=== PATIENT | female | born 1970 | race Caucasian/White ===

== ENCOUNTER 2019-06-28 17:56 | Inpatient (IN) | payer OTHER, MEDICAID ==
[2019-06-28 18:43] LABS: ABNORMAL IP MESSAGE 1; HEMATOCRIT 25.9 % (37.0-47.0); HEMOGLOBIN 7.5 g/dl (12.0-16.0); MEAN CORPUSCULAR HEMOGLOBIN 19.7 pg (29.0-33.0); MEAN PLATELET VOLUME 8.5 fl (7.4-10.4); RED BLOOD COUNT 3.81 10^6/ul (4.20-5.40); RED CELL DISTRIBUTION WIDTH 21.7 % (11.5-14.5)
[2019-06-28 18:43] LABS: WHITE BLOOD COUNT 10.7 10^3/ul (4.8-10.8)
[2019-06-28 18:45] LABS: POSITIVE DIFF @See below
[2019-06-28 18:48] LABS: ADD MAN DIFF? YES; ANION GAP 13 (5-13); BLOOD UREA NITROGEN 18 mg/dl (7-20); CALCIUM 9.2 mg/dl (8.4-10.2); CARBON DIOXIDE 25 mmol/L (21-31); CHLORIDE 92 mmol/L (97-110); CREATININE 0.82 mg/dl (0.44-1.00); Estimated GFR > 60 mL/min (>60); PATH REVIEW? YES; PLATELET COUNT 1088 10^3/UL (140-415); POTASSIUM 4.5 mmol/L (3.5-5.1); SODIUM 130 mmol/L (135-144)
[2019-06-28 19:01] LABS: GLUCOSE 644 mg/dl (70-220)
[2019-06-28] MEDS: SOD CHLORIDE 0.9% 1,000 ML IV (19:03)
[2019-06-28] MEDS: SOD CHLORIDE 0.9% 0 ML IV (19:05)
[2019-06-28] MEDS: INSULIN REGULAR, HUMAN 100 UNIT/1 ML 3ML VIAL SC (19:17)
[2019-06-28 19:37] LABS: ANISOCYTOSIS 2+ (0-0); BAND NEUTROPHILS #M 0.2 10^3/ul (0.0-0.6); BAND NEUTROPHILS % (M) 2 % (0-4); EOSINOPHILS % (M) 1 % (0-7); GIANT THROMBO% (M) 1 % (0-0); LYMPHOCYTES #M 1.6 10^3/ul (0.8-2.9); LYMPHOCYTES % (M) 15 % (15-51); MICROCYTOSIS 2+ (0-0); MONOCYTE #M 0.2 10^3/ul (0.3-0.9); MONOCYTES % (M) 2 % (0-11); MYELOCYTES #M 0.1 10^3/ul (0.0-0.0); MYELOCYTES % (M) 1 % (0-0); PLATELET ESTIMATE INCREASED; POIKILOCYTOSIS 1+ (0-0); POLYCHROMASIA 3+ (0-0); SEG NEUT #M 8.5 10^3/ul (1.6-7.5); SEGMENTED NEUTROPHILS (M) % 79 % (39-77); SMUDGE%M 4 % (0-0)
[2019-06-28] MEDS ORDERED: ONDANSETRON 4 MG INJ IV (20:00)
[2019-06-28] MEDS ORDERED: ACETAMINOPHEN 325 MG TAB PO (20:00)
[2019-06-29 01:24] LABS: IMMEDIATE SPIN CROSSMATCH 1 2
[2019-06-29 03:25] LABS: HEMATOCRIT 29.1 % (37.0-47.0)
[2019-06-29] MEDS ORDERED: ALBUTEROL/IPRATROPIUM (NEB) 3 ML AMP HHN (03:30)
[2019-06-29] MEDS ORDERED: NACL 0.9% 3 ML SYG IV (03:30)
[2019-06-29] MEDS ORDERED: ONDANSETRON 4 MG INJ IV (03:30)
[2019-06-29] MEDS: SOD CHLORIDE 0.9% 1,000 ML IV ×3 (04:08→23:28)
[2019-06-29] MEDS: ACETAMINOPHEN 325 MG TAB PO ×3 (04:08→21:04)
[2019-06-29 05:13] LABS: ADD MAN DIFF? NO
[2019-06-29 05:19] LABS: WHITE BLOOD COUNT 12.5 10^3/ul (4.8-10.8)
[2019-06-29 05:19] LABS: ABNORMAL IP MESSAGE 1; BASOPHIL # 0.1 10^3/ul (0.0-0.1); BASOPHILS % 0.5 % (0.0-2.0); EOSINOPHILS # 0.1 10^3/ul (0.0-0.5); EOSINOPHILS % 0.5 % (0.0-7.0); HEMATOCRIT 28.4 % (37.0-47.0); HEMOGLOBIN 8.7 g/dl (12.0-16.0); LYMPHOCYTES # 2.3 10^3/ul (0.8-2.9); LYMPHOCYTES % 18.5 % (15.0-51.0); MEAN CORPUSCULAR HGB CONC 30.6 g/dl (32.0-37.0); MEAN CORPUSCULAR VOLUME 71.7 fl (82.0-101.0); MEAN PLATELET VOLUME 8.3 fl (7.4-10.4); MONOCYTE # 0.9 10^3/ul (0.3-0.9); NEUTROPHIL # 9.1 10^3/ul (1.6-7.5); NEUTROPHILS % 72.5 % (39.0-77.0); PLATELET COUNT 865 10^3/UL (140-415); RED BLOOD COUNT 3.96 10^6/ul (4.20-5.40); RED CELL DISTRIBUTION WIDTH 22.9 % (11.5-14.5)
[2019-06-29 05:22] LABS: POSITIVE DIFF @See below
[2019-06-29 05:33] LABS: HEMOGLOBIN A1C 11.5 % (0-5.9)
[2019-06-29 05:52] LABS: ALANINE AMINOTRANSFERASE 21 IU/L (13-69); ALBUMIN 3.1 g/dl (3.3-4.9); ALBUMIN/GLOBULIN RATIO 0.79; ALKALINE PHOSPHATASE 120 IU/L (42-121); ANION GAP 11 (5-13); ASPARTATE AMINO TRANSFERASE 24 IU/L (15-46); BILIRUBIN,INDIRECT 0.9 mg/dl (0-1.1); BILIRUBIN,TOTAL 0.9 mg/dl (0.2-1.3); BLOOD UREA NITROGEN 14 mg/dl (7-20); CALCIUM 8.2 mg/dl (8.4-10.2); CARBON DIOXIDE 23 mmol/L (21-31); CHLORIDE 100 mmol/L (97-110); CHOL/HDL RATIO 5.9 RATIO; CHOLESTEROL 161 mg/dl (100-200); CREATININE 0.52 mg/dl (0.44-1.00); Estimated GFR > 60 mL/min (>60); GLUCOSE 285 mg/dl (70-220); HDL CHOLESTEROL 27 mg/dl (37-92); LDL CHOLESTEROL,CALCULATED 95 mg/dl; POTASSIUM 3.8 mmol/L (3.5-5.1); SODIUM 134 mmol/L (135-144); TRIGLYCERIDES 197 mg/dl (0-149)
[2019-06-29] MEDS: INSULIN GLARGINE [LANTus] (100 UNITS/ML) SYG SC (08:21)
[2019-06-29] MEDS ORDERED: NORETHINDRONE ACETATE ORAL (09:00)
[2019-06-29] MEDS ORDERED: NORETHINDRONE ACETATE XX (09:00)
[2019-06-29] MEDS: INSULIN ASPART [NOVOLOG] 3 ML PEN SC ×7 (10:21→21:05)
[2019-06-29] MEDS: LOSARTAN 25 MG TAB PO (10:24)
[2019-06-29 19:53] LABS: HEMATOCRIT 29.7 % (37.0-47.0); HEMOGLOBIN 8.9 g/dl (12.0-16.0)
[2019-06-30] MEDS: ACCU-CHEK XX (02:35)
[2019-06-30 05:18] LABS: ADD MAN DIFF? NO
[2019-06-30 05:38] LABS: WHITE BLOOD COUNT 11.2 10^3/ul (4.8-10.8)
[2019-06-30 05:38] LABS: ABNORMAL IP MESSAGE 1; BASOPHIL # 0.1 10^3/ul (0.0-0.1); BASOPHILS % 0.4 % (0.0-2.0); EOSINOPHILS # 0.1 10^3/ul (0.0-0.5); EOSINOPHILS % 0.7 % (0.0-7.0); HEMATOCRIT 27.2 % (37.0-47.0); HEMOGLOBIN 8.3 g/dl (12.0-16.0); LYMPHOCYTES # 2.2 10^3/ul (0.8-2.9); LYMPHOCYTES % 19.5 % (15.0-51.0); MEAN CORPUSCULAR HEMOGLOBIN 22.1 pg (29.0-33.0); MEAN CORPUSCULAR HGB CONC 30.5 g/dl (32.0-37.0); MEAN CORPUSCULAR VOLUME 72.3 fl (82.0-101.0); MEAN PLATELET VOLUME 8.2 fl (7.4-10.4); MONOCYTES % 8.8 % (0.0-11.0); NEUTROPHIL # 7.8 10^3/ul (1.6-7.5); NEUTROPHILS % 69.6 % (39.0-77.0); PLATELET COUNT 845 10^3/UL (140-415); RED BLOOD COUNT 3.76 10^6/ul (4.20-5.40); RED CELL DISTRIBUTION WIDTH 22.4 % (11.5-14.5)
[2019-06-30 05:52] LABS: POSITIVE DIFF @See below
[2019-06-30 06:06] LABS: ANION GAP 7 (5-13); BLOOD UREA NITROGEN 11 mg/dl (7-20); CALCIUM 8.1 mg/dl (8.4-10.2); CARBON DIOXIDE 25 mmol/L (21-31); CHLORIDE 103 mmol/L (97-110); CREATININE 0.48 mg/dl (0.44-1.00); Estimated GFR > 60 mL/min (>60); GLUCOSE 247 mg/dl (70-220); MAGNESIUM 1.7 mg/dl (1.7-2.5); POTASSIUM 3.6 mmol/L (3.5-5.1); SODIUM 135 mmol/L (135-144)
[2019-06-30] MEDS: INSULIN ASPART [NOVOLOG] 3 ML PEN SC ×7 (08:05→21:57)
[2019-06-30] MEDS: LOSARTAN 25 MG TAB PO (08:10)
[2019-06-30] MEDS: INSULIN GLARGINE [LANTus] (100 UNITS/ML) SYG SC (09:23)
[2019-06-30] MEDS: SOD CHLORIDE 0.9% 1,000 ML IV ×2 (09:31→21:43)
[2019-06-30] MEDS: ACETAMINOPHEN 325 MG TAB PO ×2 (12:01→17:44)
[2019-06-30] MEDS ORDERED: GLUCOSE GEL 15 GRAM TUBE PO ×2 (13:00)
[2019-06-30] MEDS ORDERED: GLUCOSE GEL 15 GRAM TUBE BUCCAL (13:00)
[2019-06-30] MEDS ORDERED: DEXTROSE 50% 50 ML SYRINGE IV ×2 (13:00)
[2019-06-30] MEDS ORDERED: GLUCAGON 1 MG INJ IM (13:00)
[2019-07-01] MEDS: ACETAMINOPHEN 325 MG TAB PO ×4 (01:59→22:37)
[2019-07-01] MEDS: ACCU-CHEK XX (01:59)
[2019-07-01 06:31] LABS: ADD MAN DIFF? NO
[2019-07-01 06:36] LABS: ABNORMAL IP MESSAGE 1; BASOPHIL # 0.1 10^3/ul (0.0-0.1); BASOPHILS % 0.7 % (0.0-2.0); EOSINOPHILS # 0.1 10^3/ul (0.0-0.5); EOSINOPHILS % 1.1 % (0.0-7.0); HEMATOCRIT 28.4 % (37.0-47.0); HEMOGLOBIN 8.5 g/dl (12.0-16.0); LYMPHOCYTES # 2.4 10^3/ul (0.8-2.9); LYMPHOCYTES % 26.4 % (15.0-51.0); MEAN CORPUSCULAR HEMOGLOBIN 21.8 pg (29.0-33.0); MEAN CORPUSCULAR HGB CONC 29.9 g/dl (32.0-37.0); MEAN CORPUSCULAR VOLUME 72.8 fl (82.0-101.0); MEAN PLATELET VOLUME 8.1 fl (7.4-10.4); MONOCYTE # 0.8 10^3/ul (0.3-0.9); NEUTROPHIL # 5.6 10^3/ul (1.6-7.5); RED CELL DISTRIBUTION WIDTH 23.1 % (11.5-14.5)
[2019-07-01 06:39] LABS: POSITIVE DIFF @See below
[2019-07-01 06:40] LABS: PLATELET COUNT 777 10^3/UL (140-415)
[2019-07-01] MEDS: SOD CHLORIDE 0.9% 1,000 ML IV ×3 (06:48→16:52)
[2019-07-01 07:17] LABS: PHOSPHORUS 3.8 mg/dl (2.5-4.9)
[2019-07-01 07:17] LABS: MAGNESIUM 1.8 mg/dl (1.7-2.5)
[2019-07-01 07:18] LABS: ANION GAP 8 (5-13); BLOOD UREA NITROGEN 13 mg/dl (7-20); CALCIUM 8.8 mg/dl (8.4-10.2); CARBON DIOXIDE 25 mmol/L (21-31); CHLORIDE 106 mmol/L (97-110); Estimated GFR > 60 mL/min (>60); GLUCOSE 120 mg/dl (70-220); POTASSIUM 3.5 mmol/L (3.5-5.1); SODIUM 139 mmol/L (135-144)
[2019-07-01] MEDS: INSULIN ASPART [NOVOLOG] 3 ML PEN SC ×7 (08:00→20:46)
[2019-07-01] MEDS: INSULIN GLARGINE [LANTus] (100 UNITS/ML) SYG SC (08:13)
[2019-07-01] MEDS: LOSARTAN 25 MG TAB PO (08:14)
[2019-07-01] MEDS: FEMYNOR PO (16:51)
[2019-07-02] MEDS: ACCU-CHEK XX (01:37)
[2019-07-02] MEDS: INSULIN GLARGINE [LANTus] (100 UNITS/ML) SYG SC (08:04)
[2019-07-02] MEDS: INSULIN ASPART [NOVOLOG] 3 ML PEN SC ×4 (08:05→12:09)
[2019-07-02] MEDS: FEMYNOR PO (08:07)
[2019-07-02] MEDS: LOSARTAN 25 MG TAB PO (08:07)
== END 2019-07-02 17:15 | disposition home or self-care (01) | DRG 761 ==
LOC: E/R 17:56 → PP2 06-29 03:12
PROC: 30233N1 Transfusion of Nonautologous Red Blood Cells into Peripheral Vein, Percutaneous Approach (ICD-10-PCS; principal; 2019-06-28)
DX: D25.9 Leiomyoma of uterus, unspecified (principal); E11.65 Type 2 diabetes mellitus with hyperglycemia; I10 Essential (primary) hypertension; D50.0 Iron deficiency anemia secondary to blood loss (chronic)
CPT/HCPCS: 36415; 36430; 76856; 80048; 80053; 80061; 82962; 83036; 83735; 84100; 84703; 85014; 85018; 85025; 86850; 86900; 86901; 86920; 96372; 99285-25